=== PATIENT | female | born 1965 | race Caucasian/White ===

== ENCOUNTER 2016-07-25 20:18 | Emergency (ER) | payer OTHER ==
[2016-07-25 21:39] LABS: BILIRUBIN NEGATIVE (NEGATIVE); BLOOD NEGATIVE Ery/uL (NEGATIVE); CLARITY CLEAR (CLEAR); COLOR YELLOW (YELLOW); GLUCOSE (U) 3+ mg/dL (NORMAL); KETONE (U) NEGATIVE (NEGATIVE); LEUKOCYTES NEGATIVE Leu/uL (NEGATIVE); NITRITE NEGATIVE (NEGATIVE); PROTEIN NEGATIVE (NEGATIVE); SPECIFIC GRAVITY <=1.005 (1.001-1.030); UROBILINOGEN 0.2 mg/dL (0.2-1.0); pH 5.5 (5.0-9.0)
[2016-07-25 21:55] LABS: BASOPHIL 0.2 % (0-2); EOSINOPHIL 0.9 % (0-5); HCT 37.3 % (37.0-47.0); HGB 12.3 g/dl (12.5-16.0); LYMPHOCYTE 19.2 % (15-48); MCH 27.9 pg (25.0-31.0); MCV 84.6 fL (78.0-100.0); MONOCYTE 8.6 % (0-12); MPV 10.9 fL (6.0-9.5); NEUTROPHIL 71.1 % (41-80); PLT 76 K/uL (150-400); RBC 4.41 M/uL (4.20-5.40); RDW 14.9 % (11.5-14.0); WBC 4.5 K/uL (4.0-10.5)
[2016-07-25 22:12] LABS: ALBUMIN 3.4 g/dL (3.5-5.0); BILIRUBIN - TOTAL 1.3 mg/dL (0.1-1.0); CREATININE 0.8 mg/dL (0.5-1.0); GLOBULIN (CALCULATION) 3.8 g/dL (2.2-4.2); POTASSIUM 4.2 mmol/L (3.5-5.1); TOTAL PROTEIN 7.2 g/dL (6.4-8.3)
[2016-07-25 22:14] LABS: LACTIC ACID 1.8 mmol/L (0.5-2.2)
== END 2016-07-26 00:05 | disposition home or self-care (01) ==
LOC: FER 20:18
PROVIDERS: Emergency Medicine Emergency Medical Services
DX: J18.9 Pneumonia, unspecified organism (principal); E11.65 Type 2 diabetes mellitus with hyperglycemia; M54.2 Cervicalgia; I10 Essential (primary) hypertension; E07.9 Disorder of thyroid, unspecified; R10.817 Generalized abdominal tenderness; E86.9 Volume depletion, unspecified; R82.90 Unspecified abnormal findings in urine; Z79.84 Long term (current) use of oral hypoglycemic drugs; Z79.899 Other long term (current) drug therapy; Z88.0 Allergy status to penicillin; Z88.1 Allergy status to other antibiotic agents; Z88.2 Allergy status to sulfonamides
CPT/HCPCS: 36415; 71020; 80053; 81003; 83605; 83690; 85025; 87040; 87088; J1885; J2270; J2405

== ENCOUNTER 2021-08-07 06:03 | Inpatient (IN) | payer OTHER ==
[~2021-08-07] VITALS: Ht 162.6 cm; Wt 124.9 kg
[~2021-08-07 06:03] MED LIST: CLEOCIN300 MG PO; GABAPENTIN300 MG PO; LASIX20 MG PO; LEVOTHYROXINE175 MCG PO; LISINOPRIL 20MG20 MG PO; METFORMIN HCL500 M1 PO; METOPROLOL SUCC25 MG PO; NOVOLOG FL100 UNIT/1 SC
[2021-08-07 06:34] LABS: BASOPHIL 0.2 % (0-2); EOSINOPHIL 3.4 % (0-5); HCT 35.2 % (37.0-47.0); HGB 11.7 g/dl (12.5-16.0); LYMPHOCYTE 15.7 % (15-48); MCH 29.5 pg (25.0-31.0); MCHC 33.2 g/dL (32.0-36.0); MCV 88.9 fL (78.0-100.0); MONOCYTE 4.8 % (0-12); MPV 10.8 fL (6.0-9.5); NEUTROPHIL 75.3 % (41-80); NRBC 0; PLT 57 K/uL (150-400); RBC 3.96 M/uL (4.20-5.40); RDW 15.4 % (11.5-14.0); WBC 4.8 K/uL (4.0-10.5)
[2021-08-07 07:07] LABS: ACETAMINOPHEN (TYLENOL) 32.2 ug/mL (10.0-30.0)
[2021-08-07 07:08] LABS: ALBUMIN 3.2 g/dL (3.4-5.0); BILIRUBIN - TOTAL 1.6 mg/dL (0.2-1.0); BUN/CREAT RATIO (CALC) 38.2 RATIO; CREATININE 0.89 mg/dL (0.51-0.95); GLOBULIN (CALCULATION) 4.4 g/dL; POTASSIUM 4.9 mmol/L (3.5-5.1); TOTAL PROTEIN 7.6 g/dL (6.4-8.2)
[2021-08-07 07:49] LABS: CORONAVIRUS 2019 SARS-COV-2 NEGATIVE (NEGATIVE); INFLUENZA A NAA NEGATIVE (NEGATIVE)
[2021-08-07 08:24] LABS: BILIRUBIN NEGATIVE (NEGATIVE); BLOOD TRACE-INTACT Ery/uL (NEGATIVE); CLARITY CLEAR (CLEAR); COLOR YELLOW (YELLOW); GLUCOSE (U) 2+ mg/dL (NORMAL); LEUKOCYTES NEGATIVE Leu/uL (NEGATIVE); NITRITE NEGATIVE (NEGATIVE); PROTEIN TRACE (LOW) mg/dL (NEGATIVE)
[2021-08-07 08:26] LABS: BARBITURATES NEGATIVE (NEGATIVE); ECSTASY (MDMA) NEGATIVE (NEGATIVE); MARIJUANA (THC) NEGATIVE (NEGATIVE); METHADONE NEGATIVE (NEGATIVE); OPIATES POSITIVE (NEGATIVE)
[2021-08-07 08:27] LABS: AMPHETAMINES NEGATIVE (NEGATIVE); OXYCODONE NEGATIVE (NEGATIVE)
[2021-08-07 08:39] LABS: URINARY WBC RARE
[2021-08-07 08:40] LABS: BACTERIA TRACE
[2021-08-07] MEDS ORDERED: PROBIOTIC1 EACH PO (14:04)
[2021-08-07] MEDS ORDERED: VITAMIN D350 MC3 PO (14:14)
[2021-08-07] MEDS ORDERED: VITAMIN C1000 MG PO (14:15)
[2021-08-07] MEDS ORDERED: LANTUS **100 UNITS/ SC (14:18)
[2021-08-07] MEDS ORDERED: NORCO 5-325 TA1 EACH PO (14:19)
[2021-08-07] MEDS ORDERED: SYNTHROID25 MCG PO (14:23)
[2021-08-07] MEDS ORDERED: POLY-IRON150 MG PO (14:24)
[2021-08-07] MEDS ORDERED: HUMALOG100 UNIT/2 SC (14:26)
[2021-08-07] MEDS ORDERED: HUMALOG100 UNIT/3 SC (14:27)
[2021-08-07] MEDS ORDERED: LOMOTIL1 EACH PO (14:28)
[2021-08-07] MEDS ORDERED: PROTONIX 40MG T40 MG PO (14:30)
[2021-08-07] MEDS ORDERED: ROBAXIN750 MG PO (14:30)
[2021-08-07] MEDS ORDERED: BUMEX1 MG PO (14:31)
[2021-08-07] MEDS ORDERED: PHENERGAN25 M1 PO (14:32)
[2021-08-07] MEDS ORDERED: ALDACTONE50 MG PO (14:33)
[2021-08-07] MEDS ORDERED: BACTROBAN NASAL1 GM TOP (14:33)
[2021-08-07] MEDS ORDERED: LIDOCAINE 5% P1 EACH TOP (14:34)
[2021-08-07] MEDS ORDERED: ONDANSETRON ODT8 MG PO (14:35)
[2021-08-07] MEDS ORDERED: MOMETASONE FURO45 GM TOP (14:38)
[2021-08-08 06:46] LABS: ALBUMIN 2.9 g/dL (3.4-5.0); ALKALINE PHOSHATASE 134 U/L (46-116); ALT 30 U/L (14-59); AST 49 U/L (15-37); BILIRUBIN - TOTAL 2.7 mg/dL (0.2-1.0); BUN 28 mg/dL (7-18); BUN/CREAT RATIO (CALC) 31.1 RATIO; CHLORIDE 107 mmol/L (98-107); CO2 (BICARBONATE) 26 mmol/L (21-32); GLOBULIN (CALCULATION) 3.4 g/dL; GLUCOSE 163 mg/dL (74-106); POTASSIUM 4.3 mmol/L (3.5-5.1); TOTAL PROTEIN 6.3 g/dL (6.4-8.2)
[2021-08-08 06:47] LABS: ACETAMINOPHEN (TYLENOL) < 2.0 ug/mL (10.0-30.0)
[2021-08-08] MEDS ORDERED: LACTULOSE10 G/15 ML PO ×2 (08:51→16:34)
[2021-08-08] MEDS ORDERED: KLOR-CON M2020 MEQ PO (08:51)
[2021-08-08] MEDS ORDERED: HYDROCODONE BIT10 MG PO ×2 (10:43→16:34)
[2021-08-08] MEDS ORDERED: K-TAB ER10 MEQ PO (16:34)
== END 2021-08-08 12:34 | disposition home or self-care (01) | DRG 443 ==
LOC: FER 06:03 → FMS 10:27
PROVIDERS: Internal Medicine; ADMIT Allergy & Immunology Allergy
DX: K72.90 Hepatic failure, unspecified without coma (principal); K74.60 Unspecified cirrhosis of liver; Z20.822 Contact with and (suspected) exposure to COVID-19; E03.9 Hypothyroidism, unspecified; I10 Essential (primary) hypertension; K21.9 Gastro-esophageal reflux disease without esophagitis; E11.621 Type 2 diabetes mellitus with foot ulcer; L97.529 Non-pressure chronic ulcer of other part of left foot with unspecified severity; E11.40 Type 2 diabetes mellitus with diabetic neuropathy, unspecified; S81.811A Laceration without foreign body, right lower leg, initial encounter; W06.XXXA Fall from bed, initial encounter; Z79.4 Long term (current) use of insulin; Y92.009 Unspecified place in unspecified non-institutional (private) residence as the place of occurrence of the external cause; Z79.899 Other long term (current) drug therapy; Z88.0 Allergy status to penicillin; Z88.1 Allergy status to other antibiotic agents
CPT/HCPCS: 36415; 70450; 70486; 71250; 72125; 72128; 72131; 80053; 80305; 81001; 82140; 82550; 83880; 84145; 84484; 85025; 93005; 96374; 96375; 97116; 97162; 97166; 97530-GP; 97535; G0480; J1815; J2185; J3010; U0002